=== PATIENT | female | born 1950 | race Caucasian/White ===

== ENCOUNTER 2021-04-04 11:16 | Emergency (ER) | payer MEDICARE ==
[~2021-04-04] VITALS: Ht 149.9 cm; Wt 88.6 kg
[2021-04-04 11:43] VITALS: TEMP 98.2
[2021-04-04] MEDS ORDERED: PREDNISONE20 MG PO (13:13)
[2021-04-04 13:18] VITALS: BP 159/80; PULSE 81
== END 2021-04-04 13:18 | disposition home or self-care (01) ==
LOC: COL.ER 11:16
DX: J45.998 Other asthma (principal); E11.9 Type 2 diabetes mellitus without complications; Z20.822 Contact with and (suspected) exposure to COVID-19; Z79.4 Long term (current) use of insulin